=== PATIENT | male | born 1960 | race Caucasian/White ===

== ENCOUNTER 2021-07-19 06:34 | Emergency (ER) | payer OTHER ==
[~2021-07-19 06:34] MED LIST: Sodium Chloride 0.9% 1,000 ML BAG ONE
[2021-07-19] MEDS ORDERED: Ondansetron PF 4 MG/2 ML Vial ONE (07:06)
[2021-07-19] MEDS ORDERED: Pantoprazole 40 MG VIAL ONE (07:06)
[2021-07-19] MEDS ORDERED: metroNIDAZOLE 500 MG/100 ML BAG ONE (07:15)
[2021-07-19] MEDS ORDERED: Sodium Chloride 0.9% 100 ML ONE ×3 (07:15→08:29)
[2021-07-19] MEDS ORDERED: Cefepime 2 GM VIAL ONE (07:15)
[2021-07-19 07:16] LABS: Hemoglobin 17.9 g/dL (14.0-18.0); Mean Corpuscular HGB CONC 31.4 g/dL (32.0-36.0); Mean Corpuscular Volume 104.8 fL (78.0-98.0); Platelet Count 414 thou/uL (130-400); RBC Distribution Width 11.1 % (11.5-14.5); Red Blood Cell (RBC) Count 5.43 mill/uL (4.70-6.10); White Blood Cell (WBC) Count 23.7 thou/uL (4.8-10.8)
[2021-07-19] MEDS ORDERED: Vancomycin HCl 500 MG VIAL ONE (07:16)
[2021-07-19] MEDS ORDERED: Sodium Chloride 0.9% 250 ML 250 ML ONE (07:16)
[2021-07-19] MEDS ORDERED: Vancomycin HCl 750 MG VIAL ONE (07:16)
[2021-07-19] MEDS ORDERED: Sodium Chloride 0.9% 2,000 ML ONE (07:24)
[2021-07-19 07:31] LABS: Band 11 % (5-11); Lymphocytes 8 % (21-51); MDiff Complete? YES; Manual Diff?? YES; Monocytes 4 % (0-10); Neutrophil 77 % (42-75)
[2021-07-19 07:32] LABS: Anisocytosis SLIGHT = 6-15 cells (100X) (0-5/hpf); Platelet Morphology Comment Appears Increased; Poikilocytosis SLIGHT = 6-15 cells (100X) (0-5/hpf)
[2021-07-19 07:51] LABS: INR-International Normal Ratio 0.9; PTT 28.4 sec (22.9-36.1)
[2021-07-19 07:56] LABS: Alcohol Less than 10 mg/dL (Less than 10); CRP (Inflammatory) 0.66 mg/dL (= or < 0.5)
[2021-07-19 07:58] LABS: Bilirubin Negative (Negative); Blood, Urine Trace (Negative); Clarity Clear (Clear); Glucose, Urine (Dipstick) 500 mg/dL (Negative); Ketone, Urine > or equal to 80 mg/dL (Negative); Leukocyte Negative (Negative); Nitrite Negative (Negative); Protein, Urine (Dipstick) 100 mg/dL (Neg-Trace); Specific Gravity, Urine 1.015 (1.005-1.030); Urobilinogen 0.2 mg/dL (Less than 2)
[2021-07-19 07:58] LABS: Acetaminophen Less than 6.0 mcg/mL (10.0-30.0); Alcohol Less than 10 mg/dL (Less than 10); Salicylate Less than 8.0 mg/dL (15.0-30.0)
[2021-07-19 07:59] LABS: Bacteria/HPF Rare-Few HPF (None Seen); RBC/HPF 0-3 HPF (0-3); Squamous Epithelial 0-3 HPF (0-3); WBC/HPF 0-3 HPF (0-3)
[2021-07-19 08:07] LABS: ALT (SGPT) 27 U/L (8-55); AST (SGOT) 14 U/L (5-34); Albumin 4.1 g/dL (3.5-5.0); Alkaline Phosphatase 154 U/L (40-110); Anion Gap 40 mmol/L (10-20); BUN (Urea Nitrogen) 41 mg/dL (8.4-25.7); Bilirubin, Total 0.4 mg/dL (0.2-1.2); CK (CPK) 52 U/L (30-200); Calc. Creatinine Clearance 0 mL/min (70-130); Calcium 9.7 mg/dL (7.8-10.44); Carbon Dioxide 8 mmol/L (22-29); Chloride 86 mmol/L (98-107); Globulin 2.6 g/dL (2.4-3.5); Glucose 856 mg/dL (70-105); Potassium 5.6 mmol/L (3.5-5.1); Protein, Total 6.7 g/dL (6.0-8.3); Sodium 128 mmol/L (136-145)
[2021-07-19 08:13] LABS: Amphetamine Not Detected (NotDetected); Barbiturates Screen Not Detected (NotDetected); Benzodiazepine Screen Not Detected (NotDetected); Cocaine Metabolite Screen Not Detected (NotDetected); Medtox Control Line Valid? VALID (VALID); Methadone Not Detected (NotDetected); Methamphetamine Not Detected (NotDetected); Opiate Screen Not Detected (NotDetected); Oxycodone Screen Not Detected (NotDetected); Phencyclidine (PCP) Not Detected (NotDetected); THC/Cannabinoid Screen Not Detected (NotDetected); Tricyclic Screen Not Detected (NotDetected)
[2021-07-19 08:16] LABS: CKMB 2.3 ng/mL (0-6.6)
[2021-07-19] MEDS ORDERED: Insulin Regular 300 UNITS/3 ML VIAL ONE (08:29)
[2021-07-19 08:48] LABS: Base Excess-Venous -22.3 mmol/L (-2.0 to 3.0); Bicarbonate (HCO3v) 6.4 mmol/L (22.0-28.0); CO2 Tension (PvCO2) 22.5 mmHg (42.0-51.0); Calcium, Ionized 1.07 mmol/L (1.15-1.33); Chloride 100 mmol/L (98-107); Potassium 5.9 mmol/L (3.5-5.1); Sodium 122 mmol/L (138-145); T. Carbon Dioxide 7.1 mmol/L (22.0-28.0); vO2 Saturation-calc 97.8 % (60.0-85.0)
[2021-07-19 10:58] LABS: Lactic Acid 1.4 mmol/L (0.5-2.2)
[2021-07-19 11:00] LABS: BUN (Urea Nitrogen) 36 mg/dL (8.4-25.7); Calc. Creatinine Clearance 0 mL/min (70-130); Carbon Dioxide Less than 8 mmol/L (22-29); Chloride 108 mmol/L (98-107); Sodium 136 mmol/L (136-145)
[2021-07-19 11:01] LABS: AST (SGOT) 17 U/L (5-34); Albumin 3.4 g/dL (3.5-5.0); Alkaline Phosphatase 139 U/L (40-110); Bilirubin, Total 0.2 mg/dL (0.2-1.2); Calcium 7.3 mg/dL (7.8-10.44); Globulin 2.1 g/dL (2.4-3.5); Glucose 573 mg/dL (70-105); Protein, Total 5.5 g/dL (6.0-8.3)
[2021-07-19 11:02] LABS: ALT (SGPT) 24 U/L (8-55)
[2021-07-19 11:11] LABS: Base Excess-Venous -22.6 mmol/L (-2.0 to 3.0); Bicarbonate (HCO3v) 5.7 mmol/L (22.0-28.0); CO2 Tension (PvCO2) 19.6 mmHg (42.0-51.0); Calcium, Ionized 1.07 mmol/L (1.15-1.33); Chloride 111 mmol/L (98-107); Potassium 3.9 mmol/L (3.5-5.1); Sodium 133 mmol/L (138-145); T. Carbon Dioxide 6.3 mmol/L (22.0-28.0); vO2 Saturation-calc 90.6 % (60.0-85.0)
[2021-07-19 12:11] LABS: CSF Source CSF; Clarity Clear (Clear); Clarity Hazy (Clear); Tube # 1; Tube # 4
[2021-07-19 12:12] LABS: CSF RBC Count - Manual 31 /cu.mm (None Seen); CSF WBC/NonHematics Count-Man 3 /cu.mm (0-5)
[2021-07-19 12:22] LABS: CSF RBC Count - Manual 3575 /cu.mm (None Seen); CSF WBC/NonHematics Count-Man 8 /cu.mm (0-5)
[2021-07-19] MEDS ORDERED: Iopamidol 370 76% 125 ML VIAL FS ONE (12:25)
[2021-07-19] MEDS ORDERED: Sodium Chloride 0.9% 100 ML BAG ONE (12:54)
[2021-07-19 13:06] LABS: Cell Count Non Hematic 10 %; Lymphocytes 13 %; Segmented Neutrophils 77 %
== END 2021-07-19 10:40 | disposition short-term general hospital (02) ==
LOC: MADERS 06:34
DX: E11.10 Type 2 diabetes mellitus with ketoacidosis without coma (principal); T68.XXXA Hypothermia, initial encounter; F17.210 Nicotine dependence, cigarettes, uncomplicated; Z86.73 Personal history of transient ischemic attack (TIA), and cerebral infarction without residual deficits; Z79.4 Long term (current) use of insulin; Z79.899 Other long term (current) drug therapy
CPT/HCPCS: 36416; 36556; 51702; 62270; 70450; 70496; 70498; 71045; 71250; 74177; 80053; 80306; 80307; 81003; 81015; 82330; 82550; 82553; 82803; 82945; 83605; 84484; 85025; 85060; 85610; 85730; 86140; 87040; 87070; 87086; 87205; 89051; 93005; 94760; 96365; 96366; 96367; 96368; 96375; C9113; J0692; J1815; J2405; J3370; J3490; J7050; Q9967